=== PATIENT | female | born 1950 | race Two or more races ===

== ENCOUNTER → 2025-01-10 | Day surgery (SDC) | payer OTHER ==
[~2025-01-10] VITALS: Ht 157.5 cm; Wt 79.4 kg
[~2025-01-10] MED LIST: 0.9 % SODIUM CHLORIDE 1,000 ML IV SCH; AMLODIPINE BESYLATE 5 MG TABLET PO SCH; AMLODIPINE-OLM1 EAC2 PO; BUPIVACAINE HCL/MPF 0.5% 30ML VIAL ONE; CEFADROXIL 500 MG CAPSULE PO SCH; CEFAZOLIN SODIUM 1,000 MG VIAL IV ONE; CEFAZOLIN SODIUM 1,000 MG VIAL ONE; DUI500 PO; FAMOTIDINE/PF 20 MG in 0.9 % SODIUM CHLORIDE 8 ML IV PUSH SCH; FAMOTIDINE/PF 20 MG/2 ML VIAL IV PUSH STA; FAMOTIDINE/PF 20 MG/2 ML VIAL ONE; LOSARTAN POTAS100 MG PO; LOSARTAN POTASSIUM 100 MG TABLET PO SCH; MEPERIDINE HCL/PF 25 MG/ML VIAL IM PRN; MORPHINE SULFATE 2 MG/ML CARTRIDGE IV PRN; MORPHINE SULFATE 4 MG/ML VIAL IV ONE; PROMETHAZINE HCL 25 MG/ML AMPUL IM PRN; PROMETHAZINE HCL 25 MG/ML AMPUL ONE; RINGERS SOLUTION,LACTATED 1,000 ML IV ONE; TRAM1TAB98 PO
--- NOTE | 2025-01-10 21:36 | NUR ---
PTE ALERTA Y ORIENTADA X3 REFIERE VENIR YA QUE LA MISMA SE LASTIMO EL BRAZO JACKI DESDE EL LUDY
[2025-01-11 01:25] LABS: HEMATOCRIT 36.2 % (36.0-45.00); HEMOGLOBIN 12.2 g/dL (12.0-15.00); MEAN CELL VOLUME 77.4 fL (80.00-100.00); MEAN CORPUSCULAR HEMOGLOBIN 26.1 pg (27.00-32.0); MEAN CORPUSCULAR HGB CONC 33.7 g/dl (32.0-36.0); PLATELET COUNT 223 K/uL (150-450); RED BLOOD COUNT 4.67 M/uL (4.00-6.00); RED CELL DISTRIBUTION WIDTH 15.2 % (11.5-14.5)
--- NOTE | 2025-01-11 01:36 | NUR ---
SE ORIENTA PTE SOBRE TX MEDICO EL CULAL REFIERE ENTENDER.SE LE EXTRAEN MUESTRAS BAJO MEDIDAS ASEPTICAS,SE CANALIZA Y SE ADMINISTRAN MEDICAMENTOS VALERY ORDEN MEDICA.
[2025-01-11 02:10] LABS: INR 0.96; PARTIAL THROMBOPLASTIN TIME 28.2 SECONDS (22.0-34.0); PROTHROMBIN TIME 10.5 SECONDS (9.0-11.5)
[2025-01-11 02:15] LABS: ALBUMIN 3.6 gm/dL (3.4-5.0); BILIRUBIN TOTAL 0.87 mg/dL (0.3-1.2); CREATININE SERUM 0.76 mg/dL (0.55-1.02); GFR 73.99; GLOBULINA 3.2 G/DL (2.4-3.5); POTASSIUM 4.31 mEq/L (3.5-5.1); TOTAL PROTEIN 6.8 gm/dL (6.4-8.2)
[2025-01-11 04:16] LABS: URINE APPEARANCE Clear; URINE BILIRRUBIN Negative (NEGATIVE); URINE BLOOD Negative; URINE COLOR Yellow; URINE GLUCOSE Negative (NEGATIVE); URINE KETONE Negative (NEGATIVE); URINE LEUKOCYTE Small; URINE NITRATE Negative; URINE PROTEIN Negative (NEGATIVE); URINE UROBILINOGEN 0.2 E.U./dl
[2025-01-11 04:26] LABS: URINE BACTERIA 287.6 uL (0.0-1933); URINE EPITHELIAL CELLS 35.9 uL (0.0-38.8); URINE RBC 2.5 uL (0.0-20.8); URINE WBC 85.9 uL (0.0-23.2)
--- NOTE | 2025-01-11 07:57 | NUR ---
SE RECIBE PACIENTE FEMENINA ALERTA Y ORIENTADO X3, EN CAMA K9 CON BARANDAS ELEVADAS. AREA DE VENOPUNCION PATENTE JOYCELYN DE EDEMA Y ENROJIMIENTO. PENDIENTE LA CONSULTA CON Y . SE LE DEMETRICE EN TODO MOMENTO PRIVACIDAD Y SEGURIDAD.
[2025-01-11 23:18] VITALS: BP 173/62; O2SAT 100
== END | disposition home or self-care (01) ==
LOC: EDSTATUS 20:54 → ER 20:54 → CIR.AMB 22:25 → ER 22:25 → O/R 01-11 10:28 → SURH 01-11 10:28 → SEC-K 01-11 10:28 → SURH 01-11 11:07 → SEC-K 01-11 11:07 → O/R 01-11 18:26 → SURH 01-11 18:26 → O/R 01-11 20:35
PROVIDERS: ATTEND General Practice
DX: S52.532A Colles' fracture of left radius, initial encounter for closed fracture (principal)
CPT/HCPCS: 25609; L8699